=== PATIENT | female | born 1980 | race Caucasian/White ===

== ENCOUNTER 2017-05-26 04:16 | Emergency (ER) | payer OTHER ==
[~2017-05-26] VITALS: Ht 165.1 cm; Wt 50.0 kg
[2017-05-26 05:10] VITALS: BP 104/67
== END 2017-05-26 05:26 | disposition left against medical advice (07) ==
LOC: EMS 04:17
DX: R51 Headache (principal); F15.90 Other stimulant use, unspecified, uncomplicated; F17.210 Nicotine dependence, cigarettes, uncomplicated
CPT/HCPCS: 99281

== ENCOUNTER 2020-11-20 14:41 | Emergency (ER) | payer MEDICAID ==
[~2020-11-20] VITALS: Ht 165.1 cm; Wt 50.0 kg
[2020-11-20 14:53] VITALS: BP 105/66
[2020-11-20] MEDS ORDERED: OLANZapine 5 MG TABLET PO ONE (15:30)
[2020-11-20] MEDS ORDERED: LORazepam 1 MG TABLET PO ONE (15:30)
== END 2020-11-20 17:46 | disposition home or self-care (01) ==
LOC: EMS 14:44
DX: F25.9 Schizoaffective disorder, unspecified (principal); F15.10 Other stimulant abuse, uncomplicated; Z59.00 Homelessness unspecified; F17.210 Nicotine dependence, cigarettes, uncomplicated
CPT/HCPCS: 99284; Z7502; Z7610